=== PATIENT | male | born 1935 | race Two or more races ===

== ENCOUNTER 2018-05-22 06:18 | Day surgery (SDC) | payer MEDICARE, OTHER ==
--- NOTE | 2018-05-18 09:36 | Pre-Procedure Note/Attestation ---
Pre-Procedure Note/Attestation Complete Prior to Procedure Planned Procedure: bilateral Procedure Narrative: 1- Ptosis correction upper lids. 2- Entropion correction upper lids. 3-Blepharoplasty uppers lids. 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 I attest that, if there was a reasonable possibility of needing a blood transfusion, the patient (or the patient's legal career representative) was given the [place] [employer] standardized written summary, pursuant to the Casimiro Kg Blood Safety Act ([place] Health and Safety Code # 1645, as amended). I attest that I re-evaluated the patient just prior to the surgery and that there has been no change in the patient's H&P, except as documented below: Alirio Carreon MD May 18, 2018 09:36
[2018-05-22] VITALS (9 sets, daily range): BP systolic 149–168; BP diastolic 73–84
[~2018-05-22] VITALS: Ht 172.7 cm; Wt 79.8 kg
[~2018-05-22 06:18] MED LIST: ASPIRIN81 MG PO; AVODART0.5 MG PO; Akten 3.5% 1ml Btl BOTH EYES ONE; CRESTOR20 MG ORAL; DONEPEZIL HCL10 M2 ORAL; FLOMAX0.4 MG PO; FOLIC ACID1 MG PO; GLUCOPHAGE500 MG PO; LIPITOR20 MG PO; LOTREL 2.5-101 EACH PO; METOPROLOL SUCC50 MG ORAL; Maxitrol Opth Oint 3.5gm BOTH EYES ONE; TOPROL XL50 MG PO
[2018-05-22] MEDS ORDERED: Lidocaine 2% 20mg/ml/Epi 0.005mg/ml 20ml vial ONE (07:39)
[2018-05-22] MEDS ORDERED: Maxitrol Opth Oint 3.5gm ONE (07:39)
[2018-05-22] MEDS ORDERED: Tetracaine 0.5% Opth 4ml Soln ONE (07:39)
[2018-05-22] MEDS ORDERED: LOTREL 5-20 MG1 EACH ORAL (07:44)
[2018-05-22] MEDS ORDERED: PROSCAR5 MG ORAL (07:52)
[2018-05-22] MEDS ORDERED: JANUMET 50-1,01 EACH ORAL (07:52)
[2018-05-22] MEDS ORDERED: ZETIA10 MG ORAL (07:52)
[2018-05-22] MEDS ORDERED: ALLOPURINOL100 M1 ORAL (07:52)
[2018-05-22] MEDS ORDERED: FARXIGA5 MG PO (07:52)
--- NOTE | 2018-05-22 08:12 | Anethesia Preoperative Eval ---
Anesthesia Pre-op PMH/ROS General Date of Evaluation: May 22, 2018 Anesthesiologist: Kem ASA Score: ASA 3 Mallampati Score Class I : Soft palate, uvula, fauces, pillars visible Class II: Soft palate, uvula, fauces visible Class III: Soft palate, base of uvula visible Class IV: Only hard plate visible Mallampati Classification: Class III Surgeon: Lauri Diagnosis: Bilateral eyelid ptosis Surgical Procedure: Bilateral blepharoplasty Anesthesia History: none Social History: smoking - ex-smoker 1ppd x 40 years Family History: no anesthesia problems Allergies: Coded Allergies: No Known Allergies (Unverified , 06/11/12) Medications: see eMAR Patient NPO?: Yes NPO Date: May 21, 2018 NPO Time: 22:00 Past Medical History Cardiovascular: Reports: HTN, CAD, [place], other - HLD; Denies: valve dz, arrhythmia Pulmonary: Reports: JORGE; Denies: asthma, COPD, other Gastrointestinal/Genitourinary: Reports: GERD, other - BPH; Denies: CRI, ESRD Neurologic/Psychiatric: Denies: dementia, CVA, depression/anxiety, TIA, other Endocrine: Reports: DM; Denies: hypothyroidism, steroids, other HEENT: Denies: cataract (L), cataract (R), glaucoma, GALENA (L), GALENA (R), other Hematology/Immune: Denies: anemia, DVT, bleeding disorder, other Musculoskeletal/Integumentary: Denies: OA, RA, DJD, DDD, edema, other PSxH Narrative: bilateral cataract surgery Anesthesia Pre-op Phys. Exam Physician Exam Last Vital Signs Date Time Temp Pulse Resp B/P (MAP) Pulse Ox O2 Delivery O2 Flow Rate FiO2 05/22/18 08:06 97.8 62 20 149/73 98 Room Air Constitutional: NAD Cardiovascular: RRR Respiratory: CTA Airway Exam Mallampati Score: Class II MO: limited ROM: limited Dentures: upper, lower Anesthesia Pre-op A/P Labs see chart Studies Pre-op Studies: EKG - sr Risk Assessment & Plan Assessment: ASA III Plan: MAC Status Change Before Surgery: No Pre-Antibiotics Drug: N/A Sherley Sims MD May 22, 2018 08:12
[2018-05-22] MEDS ORDERED: Povidone-Iodine 5% opth solution ONE (08:17)
[2018-05-22] MEDS ORDERED: Midazolam 2mg/2ml Inj ONE (08:22)
[2018-05-22] MEDS ORDERED: DiphenhydrAMINE 50mg/ml Inj ONE (08:22)
[2018-05-22] MEDS ORDERED: fentaNYL 100 mcg/2 mL IV ONE (08:22)
[2018-05-22] MEDS ORDERED: Propofol 200mg/20ml IV ONE (08:23)
[2018-05-22] MEDS ORDERED: Lidocaine 1% MPF 10mg/ml 5ml ONE (08:23)
[2018-05-22] MEDS ORDERED: Sterile Water Irrig 1000ml IRRIG ONE (08:30)
[2018-05-22] MEDS ORDERED: NS Irrig 1000ml ONE (08:30)
[2018-05-22] MEDS ORDERED: LR 1000ml ONE (08:30)
[2018-05-22] MEDS ORDERED: Bupivacaine 0.75% 30ml vial INJ ONE (08:45)
[2018-05-22] MEDS ORDERED: LR 1000ml 1,000 ML IVLG SCH (08:49)
[2018-05-22] MEDS ORDERED: Hydromorphone 0.5mg/0.5ml inj IVP PRN (09:00)
[2018-05-22] MEDS ORDERED: fentaNYL 100 mcg/2 mL IV PRN (09:00)
[2018-05-22] MEDS ORDERED: DiphenhydrAMINE 50mg/ml Inj IVP PRN (09:00)
--- NOTE | 2018-05-22 10:34 | 48 Hour Post Anesthesia Eval ---
Post Anesthesia Evaluation Procedure: Bilateral blepharoplasty Date of Evaluation: May 22, 2018 Airway: patent Nausea: No Vomiting: No Pain Intensity: 0 Hydration Status: adequate Cardiopulmonary Status: at baseline Mental Status/LOC: patient returned to baseline Post-Anesthesia Complications: 0 Follow-up care needed: ready to discharge Sherley Sims MD May 22, 2018 10:34
--- NOTE | 2018-05-22 10:34 | Immediate Post-Op Evaluation ---
Immediate Post-Op Evalulation Immediate Post-Op Evalulation Procedure: Bilateral blepharoplasty Date of Evaluation: May 22, 2018 Time of Evaluation: 10:44 IV Fluids: 300 Blood Products: 0 Estimated Blood Loss: min Urinary Output: 0 Blood Pressure Systolic: 166 Blood Pressure Diastolic: 84 Pulse Rate: 64 Respiratory Rate: 16 O2 Sat by Pulse Oximetry: 97 Temperature (Fahrenheit): 97.5 Pain Score (1-10): 0 Nausea: No Vomiting: No Complications 0 Patient Status: awake, reacts, patent, none Hydration Status: adequate Drug: N/A Sherley Sims MD May 22, 2018 10:33
--- NOTE | 2018-05-22 10:48 | Discharge Summary ---
Discharge Summary Discharge Summary Discharge Summary DATE OF ADMISSION: 05/22/2018 DATE OF DISCHARGE: 05/22/2018 REASON FOR HOSPITALIZATIion: 1- Ptosis upper lids 2- Entropion upper lids 3- Dermatochalasis , blepharochalasis OU SURGERY PERFORMED: 1- Ptosis correction 2- Entropion correction 3- Blepharoplasty OU CONDITION IN THE HOSPITAL:The patient tolerated the surgery without complications. DISCHARGE CONDITION: The patient was stable at discharge. DISCHARGE MEDICATIONS: 1. Vigamox eye drops one drop q.i.d, OU 2. Prednisolone one drop q.i.d, OU 3. Keflex cap 500 mg q8h 1 PO POSTOPERATIVE ORDERS: The patient has to rest at home. No bending, No lifting, No watching Television tonight. POSTOPERATIVE FOLLOW UP: The patient will be followed in my office tomorrow morning at 7 o'clock. Alirio Carreon MD May 22, 2018 10:48
--- NOTE | 2018-05-22 10:51 | Brief Operative Note ---
Immediate Post Operative Note Operative Note Chief Complaint: Blurry vision droopiness , difficulty driving Pre-op Diagnosis: 1- Blepharoptosis upper lids 2-Entropion upper lids. 3-Blepharochalasis upper lids Procedure: 1- Ptosis correction upper lids 2- Entropion correction, upper lids 3- Blepharoplasty upper lids Post-op Diagnosis: same as pre-op Surgeon: Alirio Carreon MD Active Directory Architect: None Additional Surgeons: None Anesthesiologist: Dr. Brownlee Anesthesia: local, MAC Specimen: yes Complications: none Condition: stable Fluids: 500ml Estimated Blood Loss: minimal Drains: none Implant(s) used?: No Alirio Carreon MD May 22, 2018 10:51
--- NOTE | 2018-05-22 22:15 | Operative Note - Dictated ---
DATE OF OPERATION: 05/22/2018 FACILITY: [facility]. SURGEON: Alirio Carreon M.D. VENEER DRIER FEEDER: None. ANESTHESIOLOGIST: Dr. Brownlee. ANESTHESIA: Monitored anesthesia care plus local anesthesia with lidocaine 2% with epinephrine plus Marcaine and 0.75% 50/50 mixture. PREOPERATIVE DIAGNOSES: 1. Ptosis, upper lids. 2. Entropion, upper limbs. 3. Dermatochalasis, upper lids. 4. Blepharochalasis, upper lids. POSTOPERATIVE DIAGNOSES: 1. Ptosis, upper lids. 2. Entropion, upper limbs. 3. Dermatochalasis, upper lids. 4. Blepharochalasis, upper lids. SURGERY PERFORMED: 1. Ptosis correction, upper lids. 2. Entropion correction, upper lids. 3. Blepharoplasty, upper lids. INDICATION FOR SURGERY: The patient is an 82-year-old gentleman with history of osteoarthritis of knees, diabetes mellitus, hypertension, hypercholesterolemia, benign prostatic hypertrophy (BPH), and anemia. The patient is taking medications including amlodipine 5 mg, metoprolol 50 mg, Crestor 20 mg, aspirin 81 mg, Janumet for diabetes mellitus, tamsulosin for BPH, and medication for anemia . He has had cataract surgery in both eyes in 2012 with very good results. Now, the patient is complaining of blurry vision and difficulty driving because of upper eyelid droopiness. He is suffering from severe blepharochalasis, dermatochalasis, ptosis, and entropion in the upper lids. 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 The severity of the patient's dermatochalasis, ptosis, and entropion is clearly demonstrated in enclosed photos and the patient's visual moore. The only solution for this patient is correction of all those disfigurements and anatomy changes with surgery. INFORMED CONSENT: The nature of the surgery, risks, benefits, and potential complications were all explained in detail to the patient in his language Farsi. He voiced understanding. The potential complications including, but not limited to bleeding, infection, corneal exposure, over correction, under correction, ecchymosis, swelling of the face, hematoma, dry eye syndrome, loss of eyelashes, loss of eyebrows, and inequality of both eyes were explained in detail. Even loss of vision, loss of the eye, and were all explained in detail to the patient, who voiced understanding and accepted all the complications. Then, he signed the consent form, which is in the chart. DESCRIPTION OF SURGERY AND FINDINGS: Following that, the patient was taken to the operating room in stable condition. Lidocaine gel Akten 3.5% were applied to the conjunctiva of both eyes. Following that, the upper lids were marked with a marking pen 8 mm above the root of the eyelashes and 6 mm below the lower part of the eyebrows. About 23 mm of the skin was left to facilitate eye closure. IV sedation was given by the anesthesiologist , Dr. Brownlee. After adequate anesthesia sedation had been achieved, the upper eyelids were all anesthetized with 2% lidocaine mixed with Marcaine 0.75%. Following that, using a Bovie knife, the skin and subdermal tissue were dissected from the orbicularis oculi muscle and excised. A narrow cuts were made inside the orbicularis oculi muscle and hemostasis was performed. The fat compartments were released. The fat compartments were sculptured conservatively. Following that, the levator palpebrae superioris muscle were dissected to the aponeurosis of the muscle and the aponeurosis of the levator palpebrae superioris muscle were tacked 6 mm and stitched with 6-0 Vicryl. The sutures were trimmed and hemostasis was performed. Following that, a wedge groove was made 3 mm above the root of the upper eyelid lashes. Following that, the tarsal material inside the groove was removed with the Vannas scissors. Following that, the lips of the groove were stitched with 6-0 Vicryl. The suture was trimmed and hemostasis was performed. At the end of the part, the orbicularis oculi muscle was stitched with 6-0 Vicryl in the fashion of interrupted sutures, who had it glued . Same procedure was performed on the left eye. At the end of the procedure, the skin was closed with 6-0 plain gut in the fashion of continuous running. At the end of the surgery, the Maxitrol eye ointment was applied to the wound. The patient tolerated the surgery without complications. Following that, the patient was transferred to the recovery room. In the recovery room, the wound was checked for bleeding. There was no bleeding. Cold compresses were applied to the area. Postop orders and directions were given to the patient. The patient will be discharged home upon stabilization. The patient will be followed in my office tomorrow morning. Alirio Carreon M.D. DR: MIRZA JOB#: [id number] CC:
== END 2018-05-22 12:00 | disposition home or self-care (01) ==
LOC: SUR 06:18
DX: H02.403 Unspecified ptosis of bilateral eyelids (principal); H02.834 Dermatochalasis of left upper eyelid; H02.831 Dermatochalasis of right upper eyelid; H02.34 Blepharochalasis left upper eyelid; H02.31 Blepharochalasis right upper eyelid; H02.034 Senile entropion of left upper eyelid; H02.031 Senile entropion of right upper eyelid; I10 Essential (primary) hypertension; I25.2 Old myocardial infarction; E11.9 Type 2 diabetes mellitus without complications; Z79.84 Long term (current) use of oral hypoglycemic drugs; D64.9 Anemia, unspecified; M17.10 Unilateral primary osteoarthritis, unspecified knee; E78.5 Hyperlipidemia, unspecified; N40.0 Benign prostatic hyperplasia without lower urinary tract symptoms; G47.33 Obstructive sleep apnea (adult) (pediatric); K21.9 Gastro-esophageal reflux disease without esophagitis; Z87.891 Personal history of nicotine dependence
CPT/HCPCS: 15823; 67924; 82962; J1200; J2250; J2704; J3010; J3490; 94003; 94150